=== PATIENT | female | born 1945 | race Caucasian/White ===

== ENCOUNTER 2016-11-13 16:44 | Observation (INO) | payer OTHER ==
[2016-11-13] MEDS ORDERED: NITROSTAT SL PRN (18:27)
[2016-11-13 18:36] LABS: BILIRUBIN,URINE NEGATIVE (NEGATIVE); BLOOD/HEMOGLOBIN,URINE 2+ (NEGATIVE); GLUCOSE, URINE NEGATIVE (NEGATIVE); KETONES,URINE NEGATIVE (NEGATIVE); LEUKOCYTE ESTERASE ,URINE 1+ (NEGATIVE); NITRITES,URINE NEGATIVE (NEGATIVE); PROTEIN,URINE 2+ (NEGATIVE); UROBILINOGEN,URINE 1+ (NORMAL)
[2016-11-13 18:51] LABS: APPEARANCE,URINE SLIGHTLY HAZY (CLEAR); BACTERIA,URINE 2+ /HPF (NEGATIVE); COLOR,URINE DARK YELLOW (YELLOW); MUCUS,URINE FEW /HPF (NEGATIVE); SQUAMOUS EPITHELIAL CELL,UR MANY /HPF (NEGATIVE)
[2016-11-13 19:05] VITALS: BMI 37.5
[2016-11-13 19:29] LABS: BASOPHILS % (AUTO) 0.5 % (0.2-1.0); EOSINOPHILS % (AUTO) 0.5 % (0.9-2.9); HEMATOCRIT 32.6 % (36.0-47.0); HEMOGLOBIN 11.2 g/dL (12.0-16.0); LYMPHOCYTES # (AUTO) 1.1 X10^3/uL (1.3-2.9); LYMPHOCYTES % (AUTO) 12.5 % (21.0-51.0); MEAN CORPUSCULAR HEMOGLOBIN 28.8 pg (27.0-34.0); MEAN CORPUSCULAR HGB CONC 34.3 g/dL (33.0-35.0); MEAN CORPUSCULAR VOLUME 84.2 fL (80.0-100.0); MEAN PLATELET VOLUME 7.8 fL (7.4-11.0); MONOCYTES # (AUTO) 0.8 x10^3/uL (0.3-0.8); MONOCYTES % (AUTO) 9.8 % (0.0-13.0); NEUTROPHILS # (AUTO) 6.5 x10^3/uL (2.2-4.8); NEUTROPHILS % (AUTO) 76.7 % (42.0-75.0); PLATELET COUNT 309 X10^3/uL (150.0-450.0); RED BLOOD COUNT 3.87 X10^6/uL (3.5-5.4); RED CELL DISTRIBUTION WIDTH 14.6 % (11.6-16.5); WHITE BLOOD COUNT 8.4 X10^3/uL (3.6-10.0)
[2016-11-13 19:56] LABS: ALANINE AMINOTRANSFERASE 19 Units/L (12-78); ALBUMIN 2.9 g/dL (3.4-5.0); ALKALINE PHOSPHATASE 101 Units/L (46-116); ASPARTATE AMINO TRANSFERASE 20 Units/L (15-37); BLOOD UREA NITROGEN 11 mg/dL (7-18); CALCIUM 9.5 mg/dL (8.5-10.1); CARBON DIOXIDE 28.2 mmol/L (21-32); CHLORIDE 101 mmol/L (98-107); CKMB % 1.9 % (<4); COR CA(FOR HYPOALB) 10.4 mg/dL (8.5-10.1); COR NA(FOR HYPERGLY) 138 mmol/L (136-145); CREATINE KINASE 52 Units/L (26-192); CREATINE KINASE MB < 1.0 ng/mL (0-4.0); CREATININE 1.17 mg/dL (0.55-1.02); GLUCOSE 111 mg/dL (65-99); SODIUM 138 mmol/L (136-145); TOTAL PROTEIN 7.9 g/dL (6.4-8.2); TROPONIN I < 0.02 ng/mL (0-1.5); eGFR BLACK RACES 59 (>60); eGFR NON BLACK RACES 49 (>60)
[2016-11-13] MEDS ORDERED: [UNRECOGNIZED DRUG - OTHER] PO PRN (19:56)
[2016-11-13] MEDS ORDERED: ZANTAC PO SCH (21:00)
[2016-11-13] MEDS ORDERED: PATIENT'S HOME MEDICATION RESPIRATORY (Apixaban [Eliquis] 1 TAB) PO SCH (21:00)
[2016-11-13] MEDS: MORPHINE SULFATE INJ 2 MG IVP PRN (21:05)
[2016-11-13] MEDS: AMBIEN PO SCH (21:06)
[2016-11-13] MEDS: ELIQUIS PO SCH (21:07)
[2016-11-13] MEDS: CARAFATE PO SCH (21:07)
[2016-11-13] MEDS: LIORESAL PO SCH (21:07)
[2016-11-13] MEDS: PriLOSEC PO SCH (21:07)
[2016-11-13] MEDS: ZOCOR TAB 20 MG PO SCH (21:08)
--- NOTE | 2016-11-13 22:13 | RAD ---
HISTORY: Chest pain Study: PA and lateral views of the chest. Comparison: None. Findings: The cardiomediastinal silhouette is normal. No focal consolidations, pleural effusions or pneumothor ax. Osseous structures demonstrate no acute abnormality. IMPRESSION: 1. No acute cardiopulmonary process. Reported By:
[2016-11-13] MEDS ORDERED: COLACE CAP 100 MG PO ONE (22:49)
[2016-11-13] MEDS: COLACE CAP 100 MG PO SCH (22:52)
[2016-11-13] MEDS: NORCO 7.5/325 MG TAB PO PRN (23:42)
[2016-11-14 01:29] LABS: CKMB % 2.3 % (<4); CREATINE KINASE 44 Units/L (26-192); CREATINE KINASE MB < 1.0 ng/mL (0-4.0); TROPONIN I < 0.02 ng/mL (0-1.5)
[2016-11-14] MEDS: LIORESAL PO SCH ×3 (05:39→21:09)
[2016-11-14] MEDS: CARAFATE PO SCH ×3 (05:39→21:10)
[2016-11-14 07:10] LABS: CKMB % 2.6 % (<4); CREATINE KINASE 39 Units/L (26-192); CREATINE KINASE MB < 1.0 ng/mL (0-4.0); TROPONIN I < 0.02 ng/mL (0-1.5)
[2016-11-14] MEDS: ELIQUIS PO SCH ×3 (08:28→21:09)
[2016-11-14] MEDS: DETROL LA 4 MG CAP EXT REL PO SCH (08:28)
[2016-11-14] MEDS: MOBIC TAB 15 MG PO SCH (08:30)
[2016-11-14] MEDS: ZANTAC PO SCH (08:30)
[2016-11-14] MEDS: NORVASC TAB 5 MG PO SCH (08:30)
[2016-11-14] MEDS: KLONOPIN TAB 0.5 MG PO SCH (08:30)
[2016-11-14] MEDS: PriLOSEC PO SCH ×2 (08:31→21:09)
[2016-11-14] MEDS ORDERED: [UNRECOGNIZED DRUG - OTHER] PO SCH (09:00)
[2016-11-14] MEDS ORDERED: FLEXERIL TAB 10 MG PO PRN ×2 (09:08→09:11)
[2016-11-14] MEDS ORDERED: TORADOL 30 MG VIAL IVP PRN (09:08)
[2016-11-14] MEDS ORDERED: TORADOL 30 MG VIAL IVP ONE (09:10)
[2016-11-14] MEDS ORDERED: COLACE CAP 100 MG PO SCH (21:00)
[2016-11-14] MEDS: MORPHINE SULFATE INJ 2 MG IVP PRN (21:08)
[2016-11-14] MEDS: ZOCOR TAB 20 MG PO SCH (21:09)
[2016-11-14] MEDS: AMBIEN PO SCH (21:10)
[2016-11-14] MEDS: COLACE CAP 100 MG PO SCH (21:10)
[2016-11-14] MEDS: NORCO 7.5/325 MG TAB PO PRN (21:15)
[2016-11-15] MEDS: CARAFATE PO SCH (06:18)
[2016-11-15] MEDS: LIORESAL PO SCH (06:18)
[2016-11-15 06:24] LABS: BASOPHILS % (AUTO) 0.5 % (0.2-1.0); EOSINOPHILS # (AUTO) 0.2 x10^3/uL (0.0-0.2); HEMATOCRIT 31.7 % (36.0-47.0); HEMOGLOBIN 10.7 g/dL (12.0-16.0); LYMPHOCYTES # (AUTO) 1.3 X10^3/uL (1.3-2.9); LYMPHOCYTES % (AUTO) 22.5 % (21.0-51.0); MEAN CORPUSCULAR HEMOGLOBIN 28.6 pg (27.0-34.0); MEAN CORPUSCULAR HGB CONC 33.7 g/dL (33.0-35.0); MEAN PLATELET VOLUME 8.2 fL (7.4-11.0); MONOCYTES # (AUTO) 0.5 x10^3/uL (0.3-0.8); MONOCYTES % (AUTO) 8.8 % (0.0-13.0); NEUTROPHILS # (AUTO) 3.7 x10^3/uL (2.2-4.8); NEUTROPHILS % (AUTO) 65.2 % (42.0-75.0); PLATELET COUNT 317 X10^3/uL (150.0-450.0); RED BLOOD COUNT 3.73 X10^6/uL (3.5-5.4); RED CELL DISTRIBUTION WIDTH 14.9 % (11.6-16.5); WHITE BLOOD COUNT 5.7 X10^3/uL (3.6-10.0)
[2016-11-15 06:29] LABS: CALCIUM 9.5 mg/dL (8.5-10.1); CARBON DIOXIDE 28.1 mmol/L (21-32); CREATININE 1.2 mg/dL (0.55-1.02)
[2016-11-15] MEDS: ZANTAC PO SCH (09:05)
[2016-11-15] MEDS: MOBIC TAB 15 MG PO SCH (09:05)
[2016-11-15] MEDS: DETROL LA 4 MG CAP EXT REL PO SCH (09:05)
[2016-11-15] MEDS: PriLOSEC PO SCH (09:05)
[2016-11-15] MEDS: ELIQUIS PO SCH (09:06)
[2016-11-15] MEDS: NORVASC TAB 5 MG PO SCH (09:06)
[2016-11-15] MEDS: KLONOPIN TAB 0.5 MG PO SCH (09:06)
[2016-11-15 11:24] VITALS: BP 134/67
--- NOTE | 2016-11-15 13:44 | DR.H&P ---
H&P - History & Physical for Day of: H&P Date: 11/13/16 - Chief Complaint Chief Complaint: chest pain - Allergies Allergies/Adverse Reactions: Allergies Allergy/AdvReac Type Severity Reaction Status Date / Time No Known Drug Allergy Allergy Verified 11/13/16 18:10 - History of Present Illness History of Present Illness: ppatient is a 71-year-old white female who was a direct admit from Dr. Roque's office with complaints of chest pain, pain with inspiration. Patient is status post right knee replacement. Patient states pain is worse with movement and deep inspiration. Plan to admit rule out acute VA and pain control - Past Medical History Past Medical History: Arthritis, Depression, Hypertension - Past Surgical History Surgical History: Cholecystectomy, Hysterectomy, Ortho Surgery, Other - Family History Family Medical History: Diabetes Mellitus, Cancer, VA, Hypertension - Social History Does patient currently use any type of tobacco product: No Have you used tobacco products in the last 12 months: No Type of Tobacco Use: None Does any household member use tobacco: No Alcohol Use: None Drug Use: None - Medications Home Medications: Amlodipine Besylate [NORVASC 5 MG *] 1 tab PO DAILY 11/13/16 [History Confirmed 11/13/16] Apixaban [Eliquis] 1 tab PO BID 11/13/16 [History Confirmed 11/13/16] Baclofen 1 tab PO TID 11/13/16 [History Confirmed 11/13/16] Clonazepam [Klonopin Tab 0.5 mg] 1 tab PO DAILY 11/13/16 [History Confirmed ] Hydrocodone-Acet 7.5 mg/325 mg [NORCO 7.5 MG/325 MG *] 1 tab PO TID 11/13/16 [ History Confirmed 11/13/16] Meloxicam [MOBIC 15 MG *] 1 tab PO DAILY 11/13/16 [History Confirmed 11/13/16] Omeprazole [PRILOSEC 20 MG *] 1 tab PO BID 11/13/16 [History Confirmed 11/13/16] Oxycodone HCl 1 - 2 tabs PO Q6H PRN 11/13/16 [History Confirmed 11/13/16] Ranitidine HCl [ZANTAC TAB 150 MG *] 1 tab PO BID 11/13/16 [History Confirmed ] Simvastatin [ZOCOR 20 MG *] 1 tab PO HS 11/13/16 [History Confirmed 11/13/16] Solifenacin Succinate [Vesicare] 1 tab PO DAILY 11/13/16 [History Confirmed ] Sucralfate [CARAFATE TAB 1 GM *] 1 tab PO TID 11/13/16 [History Confirmed ] Zolpidem Tartrate 1 tab PO HS 11/13/16 [History Confirmed 11/13/16] - Review of Systems Constitutional: No Symptoms Reported Eyes: No Symptoms Reported ENT: No Symptoms Reported Respiratory: Pleuritic Pain Cardiovascular: Chest Pain. denies: Light Headedness Gastrointestinal: No Symptoms Reported Genitourinary: No Symptoms Reported Musculoskeletal: Back Pain, Other (anterior chest wall pain) Skin: Wound (right knee dressing clean intact) Neurological: No Symptoms Reported - Physical Exam Vital Signs: Temperature 98.0 F Pulse Rate [Left Brachial] 64 Pulse Rate [Right Brachial] 65 Respiratory Rate 18 Blood Pressure [Left Arm] 134/67 Blood Pressure [Right Arm] 120/60 O2 Sat by Pulse Oximetry 96 Oriented: Normal Eyes: Normal Ear: Normal Nose: Normal Throat: Normal Respiratory: Clear Throughout Cardiovascular: Normal : Normal Auscultation: Bowel Sounds: Normal Palpation: Normal Tenderness: Normal Skin: Wound Musculoskeletal: Back:Thoracic, Back:Lumbar, Tender (ANTERIOR CHEST WALL, AND PECTORIS) Mood Description: Calm Speech Pattern: Clear, Appropriate - Assessment/Plan (1) Chest pain, rule out acute myocardial infarction Status: Acute Plan: ADMIT, R/O AMI. SERIAL CARDIAC ENZYMES EKGS. BP CONTROL, PAIN CONTROL (2) Anxiety Status: Chronic (3) Depression Qualifiers: Depression Type: D Major depression recurrence: M Active/Remission status : A Major depression episode severity: M Psychotic features: P Trimester: T Status: Chronic (4) GERD (gastroesophageal reflux disease) Qualifiers: Esophagitis presence: E Status: Chronic (5) HTN (hypertension) Qualifiers: Hypertension type: H Status: Chronic (6) Hyperlipidemia Qualifiers: Hyperlipidemia type: H Status: Chronic
--- NOTE | 2016-11-15 13:47 | PCM.PROG ---
Progress Note - Progress Note for Day of Date: 11/14/16 - Subjective Subjective: CHEST WALL PAIN - Past Medical Family Social History Past Med/Fam/Surg Hx: No changes since H&P Allergies: Allergies No Known Drug Allergy Allergy (Verified 11/13/16 18:10) - Review of Systems ROS: No change since H&P - Vital Signs and I&O's Vital Signs: Temperature 98.0 F Pulse Rate [Left Brachial] 64 Pulse Rate [Right Brachial] 65 Respiratory Rate 18 Blood Pressure [Left Arm] 134/67 Blood Pressure [Right Arm] 120/60 O2 Sat by Pulse Oximetry 96 Intake and Output: Intake & Output 11/13/16 11/14/16 11/15/16 11/16/16 11:59 11:59 11:59 11:59 Intake Total 10 1540 Balance 10 1540 - Physical Exam Oriented: Normal Eyes: Normal Ear: Normal Nose: Normal Throat: Normal Respiratory: Normal Cardiovascular: Normal : Normal Auscultation: Bowel Sounds: Normal Tenderness: Normal Skin: Wound Musculoskeletal: Back:Thoracic, Back:Lumbar, Tender (ANTERIOR CHEST WALL, AND PECTORIS) Mood Description: Calm Speech Pattern: Clear, Appropriate - Laboratory and Diagnostics Result Diagrams: 11/15/16 05:30 11/15/16 05:30 Labs: Laboratory WBC 5.7 X10^3/uL (3.6-10.0) 11/15/16 05:30 RBC 3.73 X10^6/uL (3.5-5.4) 11/15/16 05:30 Hgb 10.7 g/dL (12.0-16.0) L 11/15/16 05:30 Hct 31.7 % (36.0-47.0) L 11/15/16 05:30 MCV 85.0 fL (80.0-100.0) 11/15/16 05:30 MCH 28.6 pg (27.0-34.0) 11/15/16 05:30 MCHC 33.7 g/dL (33.0-35.0) 11/15/16 05:30 RDW 14.9 % (11.6-16.5) 11/15/16 05:30 Plt Count 317 X10^3/uL (150.0-450.0) 11/15/16 05:30 MPV 8.2 fL (7.4-11.0) 11/15/16 05:30 Neut % 65.2 % (42.0-75.0) 11/15/16 05:30 Lymph % 22.5 % (21.0-51.0) 11/15/16 05:30 [place] % 8.8 % (0.0-13.0) 11/15/16 05:30 Eos % 3.0 % (0.9-2.9) H 11/15/16 05:30 Baso % 0.5 % (0.2-1.0) 11/15/16 05:30 Neut # 3.7 x10^3/uL (2.2-4.8) 11/15/16 05:30 Lymph # 1.3 X10^3/uL (1.3-2.9) 11/15/16 05:30 [place] # 0.5 x10^3/uL (0.3-0.8) 11/15/16 05:30 Eos # 0.2 x10^3/uL (0.0-0.2) 11/15/16 05:30 Baso # 0.0 X10^3/uL (0.0-0.1) 11/15/16 05:30 Absolute Nucleated RBC 0.1 /100WBC 11/15/16 05:30 Sodium 141 mmol/L (136-145) 11/15/16 05:30 Corrected Sodium 141 mmol/L (136-145) 11/15/16 05:30 Potassium 3.9 mmol/L (3.5-5.1) 11/15/16 05:30 Chloride 106 mmol/L (98-107) 11/15/16 05:30 Carbon Dioxide 28.1 mmol/L (21-32) 11/15/16 05:30 BUN 16 mg/dL (7-18) 11/15/16 05:30 Creatinine 1.20 mg/dL (0.55-1.02) H 11/15/16 05:30 Est GFR (MDRD) Af Amer 57 (>60) L 11/15/16 05:30 Est GFR (MDRD) Non-Af 47 (>60) L 11/15/16 05:30 Glucose 111 mg/dL (65-99) H 11/15/16 05:30 Calcium 9.5 mg/dL (8.5-10.1) 11/15/16 05:30 Corrected Calcium 10.4 mg/dL (8.5-10.1) H 11/13/16 19:16 Total Bilirubin 0.80 mg/dL (0.2-1.0) 11/13/16 19:16 AST 20 Units/L (15-37) 11/13/16 19:16 ALT 19 Units/L (12-78) 11/13/16 19:16 Alkaline Phosphatase 101 Units/L (46-116) 11/13/16 19:16 Creatine Kinase 39 Units/L (26-192) 11/14/16 06:15 CK-MB (CK-2) < 1.0 ng/mL (0-4.0) 11/14/16 06:15 CK/CKMB % Calc 2.6 % (<4) 11/14/16 06:15 Troponin I < 0.02 ng/mL (0-1.5) 11/14/16 06:15 Total Protein 7.9 g/dL (6.4-8.2) 11/13/16 19:16 Albumin 2.9 g/dL (3.4-5.0) L 11/13/16 19:16 Globulin 5.0 g/dL (2.5-4.5) H 11/13/16 19:16 Albumin/Globulin Ratio 0.6 Ratio (1.1-2.1) L 11/13/16 19:16 Specimen Type Clean catch urine 11/13/16 18:28 Urine Color Dark yellow (YELLOW) 11/13/16 18:28 Urine Appearance Slightly hazy (CLEAR) 11/13/16 18:28 Urine pH 6.0 (5.0 - 8.0) 11/13/16 18:28 Ur Specific [place] 1.015 (1.000-1.030) 11/13/16 18:28 Urine Protein 2+ (NEGATIVE) 11/13/16 18:28 Urine Glucose (UA) Negative (NEGATIVE) 11/13/16 18:28 Urine Ketones Negative (NEGATIVE) 11/13/16 18:28 Urine Occult Blood 2+ (NEGATIVE) 11/13/16 18:28 Urine Nitrite Negative (NEGATIVE) 11/13/16 18:28 Urine Bilirubin Negative (NEGATIVE) 11/13/16 18:28 Urine Urobilinogen 1+ (NORMAL) 11/13/16 18:28 Ur Leukocyte Esterase 1+ (NEGATIVE) 11/13/16 18:28 Urine RBC 4-5 /HPF (NEGATIVE) 11/13/16 18:28 Urine WBC 2-3 /HPF (NEGATIVE) 11/13/16 18:28 Ur Squamous Epith Cells Many /HPF (NEGATIVE) 11/13/16 18:28 Urine Bacteria 2+ /HPF (NEGATIVE) 11/13/16 18:28 Urine Mucus Few /HPF (NEGATIVE) 11/13/16 18:28 Ur Culture Indicated? No/not indicated 11/13/16 18:28 - Plan (1) Costochondral chest pain Status: Acute Plan: CONTINUE PAIN CONTROL. IV TORADOL AND FLEXERIL, PLAN TO D/C IF IMPROVES INFLAMMATION (2) Pectoralis muscle strain Status: Acute Qualifiers: Encounter type: E (3) Chest pain, rule out acute myocardial infarction Status: Acute Plan: CARDIAC ENZYMES AND EKG NORMAL. DISCUSSED INFLAMMATORY CHEST WALL PAIN WITH PT, STATES SHE HAS USED UPPER BODY MORE SINCE SURGERY, SORENESS IN ARMS AND SHOULDERS AND ALONG CHEST WALL. WILL TRY ON FLEXERIL AND TORADOL (4) Anxiety Status: Chronic (5) Depression Status: Chronic Qualifiers: Depression Type: D Major depression recurrence: M Active/Remission status : A Major depression episode severity: M Psychotic features: P Trimester: T (6) GERD (gastroesophageal reflux disease) Status: Chronic Qualifiers: Esophagitis presence: E (7) HTN (hypertension) Status: Chronic Qualifiers: Hypertension type: H (8) Hyperlipidemia Status: Chronic Qualifiers: Hyperlipidemia type: H
--- NOTE | 2016-11-15 13:49 | PCM.DCPLAN ---
Discharge Summary - Admission Date Date of Admission: 11/13/16 - Discharge Date Discharge Date: 11/15/16 - Admission Diagnoses (1) Costochondral chest pain Status: Acute (2) Pectoralis muscle strain Status: Acute (3) Chest pain, rule out acute myocardial infarction Status: Acute (4) Anxiety Status: Chronic (5) Depression Status: Chronic (6) GERD (gastroesophageal reflux disease) Status: Chronic (7) HTN (hypertension) Status: Chronic (8) Hyperlipidemia Status: Chronic - Discharge Diagnoses Discharge Diagnosis: SAME ADMISSION - Discharge Medications Discharge Medications: Amlodipine Besylate [NORVASC 5 MG *] 1 tab PO DAILY 11/13/16 [History] Apixaban [Eliquis] 1 tab PO BID 11/13/16 [History] Baclofen 1 tab PO TID 11/13/16 [History] Clonazepam [Klonopin Tab 0.5 mg] 1 tab PO DAILY 11/13/16 [History] Hydrocodone-Acet 7.5 mg/325 mg [NORCO 7.5 MG/325 MG *] 1 tab PO TID 11/13/16 [ History] Meloxicam [MOBIC 15 MG *] 1 tab PO DAILY 11/13/16 [History] Omeprazole [PRILOSEC 20 MG *] 1 tab PO BID 11/13/16 [History] Oxycodone HCl 1 - 2 tabs PO Q6H PRN 11/13/16 [History] Ranitidine HCl [ZANTAC TAB 150 MG *] 1 tab PO BID 11/13/16 [History] Simvastatin [ZOCOR 20 MG *] 1 tab PO HS 11/13/16 [History] Solifenacin Succinate [Vesicare] 1 tab PO DAILY 11/13/16 [History] Sucralfate [CARAFATE TAB 1 GM *] 1 tab PO TID 11/13/16 [History] Zolpidem Tartrate 1 tab PO HS 11/13/16 [History] Cyclobenzaprine HCl [FLEXERIL 10 MG *] 10 mg PO TID PRN #30 tab 11/15/16 [Rx] - Hospital Course Vital Signs: Temperature 98.0 F Pulse Rate [Left Brachial] 64 Pulse Rate [Right Brachial] 65 Respiratory Rate 18 Blood Pressure [Left Arm] 134/67 Blood Pressure [Right Arm] 120/60 O2 Sat by Pulse Oximetry 96 Latest Lab Results: Laboratory Last Values WBC 5.7 X10^3/uL (3.6-10.0) 11/15/16 05:30 RBC 3.73 X10^6/uL (3.5-5.4) 11/15/16 05:30 Hgb 10.7 g/dL (12.0-16.0) L 11/15/16 05:30 Hct 31.7 % (36.0-47.0) L 11/15/16 05:30 MCV 85.0 fL (80.0-100.0) 11/15/16 05:30 MCH 28.6 pg (27.0-34.0) 11/15/16 05:30 MCHC 33.7 g/dL (33.0-35.0) 11/15/16 05:30 RDW 14.9 % (11.6-16.5) 11/15/16 05:30 Plt Count 317 X10^3/uL (150.0-450.0) 11/15/16 05:30 MPV 8.2 fL (7.4-11.0) 11/15/16 05:30 Neut % 65.2 % (42.0-75.0) 11/15/16 05:30 Lymph % 22.5 % (21.0-51.0) 11/15/16 05:30 [place] % 8.8 % (0.0-13.0) 11/15/16 05:30 Eos % 3.0 % (0.9-2.9) H 11/15/16 05:30 Baso % 0.5 % (0.2-1.0) 11/15/16 05:30 Neut # 3.7 x10^3/uL (2.2-4.8) 11/15/16 05:30 Lymph # 1.3 X10^3/uL (1.3-2.9) 11/15/16 05:30 [place] # 0.5 x10^3/uL (0.3-0.8) 11/15/16 05:30 Eos # 0.2 x10^3/uL (0.0-0.2) 11/15/16 05:30 Baso # 0.0 X10^3/uL (0.0-0.1) 11/15/16 05:30 Absolute Nucleated RBC 0.1 /100WBC 11/15/16 05:30 Sodium 141 mmol/L (136-145) 11/15/16 05:30 Corrected Sodium 141 mmol/L (136-145) 11/15/16 05:30 Potassium 3.9 mmol/L (3.5-5.1) 11/15/16 05:30 Chloride 106 mmol/L (98-107) 11/15/16 05:30 Carbon Dioxide 28.1 mmol/L (21-32) 11/15/16 05:30 BUN 16 mg/dL (7-18) 11/15/16 05:30 Creatinine 1.20 mg/dL (0.55-1.02) H 11/15/16 05:30 Est GFR (MDRD) Af Amer 57 (>60) L 11/15/16 05:30 Est GFR (MDRD) Non-Af 47 (>60) L 11/15/16 05:30 Glucose 111 mg/dL (65-99) H 11/15/16 05:30 Calcium 9.5 mg/dL (8.5-10.1) 11/15/16 05:30 Corrected Calcium 10.4 mg/dL (8.5-10.1) H 11/13/16 19:16 Total Bilirubin 0.80 mg/dL (0.2-1.0) 11/13/16 19:16 AST 20 Units/L (15-37) 11/13/16 19:16 ALT 19 Units/L (12-78) 11/13/16 19:16 Alkaline Phosphatase 101 Units/L (46-116) 11/13/16 19:16 Creatine Kinase 39 Units/L (26-192) 11/14/16 06:15 CK-MB (CK-2) < 1.0 ng/mL (0-4.0) 11/14/16 06:15 CK/CKMB % Calc 2.6 % (<4) 11/14/16 06:15 Troponin I < 0.02 ng/mL (0-1.5) 11/14/16 06:15 Total Protein 7.9 g/dL (6.4-8.2) 11/13/16 19:16 Albumin 2.9 g/dL (3.4-5.0) L 11/13/16 19:16 Globulin 5.0 g/dL (2.5-4.5) H 11/13/16 19:16 Albumin/Globulin Ratio 0.6 Ratio (1.1-2.1) L 11/13/16 19:16 Specimen Type Clean catch urine 11/13/16 18:28 Urine Color Dark yellow (YELLOW) 11/13/16 18:28 Urine Appearance Slightly hazy (CLEAR) 11/13/16 18:28 Urine pH 6.0 (5.0 - 8.0) 11/13/16 18:28 Ur Specific [place] 1.015 (1.000-1.030) 11/13/16 18:28 Urine Protein 2+ (NEGATIVE) 11/13/16 18:28 Urine Glucose (UA) Negative (NEGATIVE) 11/13/16 18:28 Urine Ketones Negative (NEGATIVE) 11/13/16 18:28 Urine Occult Blood 2+ (NEGATIVE) 11/13/16 18:28 Urine Nitrite Negative (NEGATIVE) 11/13/16 18:28 Urine Bilirubin Negative (NEGATIVE) 11/13/16 18:28 Urine Urobilinogen 1+ (NORMAL) 11/13/16 18:28 Ur Leukocyte Esterase 1+ (NEGATIVE) 11/13/16 18:28 Urine RBC 4-5 /HPF (NEGATIVE) 11/13/16 18:28 Urine WBC 2-3 /HPF (NEGATIVE) 11/13/16 18:28 Ur Squamous Epith Cells Many /HPF (NEGATIVE) 11/13/16 18:28 Urine Bacteria 2+ /HPF (NEGATIVE) 11/13/16 18:28 Urine Mucus Few /HPF (NEGATIVE) 11/13/16 18:28 Ur Culture Indicated? No/not indicated 11/13/16 18:28 Hospital Course: PATIENT IS A 71-YEAR-OLD WHITE FEMALE WHO WAS A DIRECT ADMIT FROM dR. Manuel' S OFFICE WITH A DIAGNOSIS OF CHEST PAIN. pATIENT WAS ADMITTED TO RULE OUT A mi. pATIENT HAD SERIAL CARDIAC ENZYMES CHEST X-RAY AND ekgS. pATIENT'S CARDIAC ENZYMES AND ekgS WERE STABLE. tHE PATIENT CONTINUED TO COMPLAIN OF CHEST WALL PAIN. pATIENT IS STATUS POST RIGHT KNEE REPLACEMENT. pATIENT STATES SHE IS USING UPPER BODY MORE EFFORT TO MAINTAIN MOBILITY AND FEELS LIKE IT MAY BE RELATED TO MUSCLE USE. pATIENT WAS STARTED ON iv tORADOL AND WHEN NECESSARY fLEXERIL FOR PAIN AND INFLAMMATION. aFTER 1 DOSE OF tORADOL AND fLEXERIL PATIENT STARTED TO IMPROVEMENT IN SYMPTOMS. pATIENT PATIENT REPORTS SIGNIFICANTLY IMPROVED MUSCLE AND CHEST WALL PAIN. pATIENT WAS DISCHARGED HOME TODAY TO RESUME HOME MEDICATIONS AND CONTINUE fLEXERIL 10 MG EVERY 8 HOURS WHEN NECESSARY. pATIENT INSTRUCTED TO FOLLOW-UP WITH dR. Manuel IN ONE WEEK FOR FURTHER EVALUATION OF CHEST WALL PAIN IF IT RESUMED. pATIENT INSTRUCTED TO REPORT TO er FOR CHEST PAIN ACCOMPANIED BY SHORTNESS OF BREATH DIAPHORESIS NAUSEA AND VOMITING. pATIENT VERBALIZED UNDERSTANDING AND WAS DISCHARGED HOME WITH FAMILY STABLE ON DISCHARGE. - Discharge Plan Disposition: 01 , SELF-CARE Condition: Stable Prescriptions: Cyclobenzaprine HCl [FLEXERIL 10 MG *] 10 mg PO TID PRN #30 tab PRN Reason: - Follow ups/Referrals Follow ups/Referrals: SOCORRO MANUEL [Primary Care Provider] - 11/21/16 8:15 am - Instructions Instructions: Cyclobenzaprine tablets, Nonspecific Chest Pain, [id number], Hypertension, [id number] Forms: Patient Portal
== END 2016-11-15 10:50 | disposition home or self-care (01) ==
LOC: MED/SURG 16:44
PROVIDERS: ADMIT Internal Medicine; ATTEND Internal Medicine
DX: R07.1 Chest pain on breathing (principal); R07.89 Other chest pain; M13.89 Other specified arthritis, multiple sites; I10 Essential (primary) hypertension; F41.8 Other specified anxiety disorders; F32.89 Other specified depressive episodes; K21.9 Gastro-esophageal reflux disease without esophagitis; E78.2 Mixed hyperlipidemia; S29.011A Strain of muscle and tendon of front wall of thorax, initial encounter; X58.XXXA Exposure to other specified factors, initial encounter; D64.89 Other specified anemias
CPT/HCPCS: 36415; 71020; 80048; 80053; 81001; 82550; 82553; 84484; 85025; 93005; 93010; 94760; A4222; G8978; G8979; G8980; G0378; J1885; J2270